=== PATIENT | female | born 1985 | race Caucasian/White ===

== ENCOUNTER 2022-01-16 06:00 | Day surgery (SDC) | payer MEDICAID ==
[~2022-01-16] VITALS: Ht 149.9 cm; Wt 135.0 kg
[2022-01-16 07:13] VITALS: BP 134/71; PULSE 70; TEMP 97.7
[2022-01-16] MEDS ORDERED: BUSPAR10 MG PO (07:17)
[2022-01-16] MEDS ORDERED: LAMICTAL 100MG100 MG PO (07:19)
[2022-01-16] MEDS ORDERED: LEXAPRO 10MG10 MG PO (07:20)
[2022-01-16] MEDS ORDERED: VITAMIND3 5000 PO (07:22)
--- NOTE | 2022-01-16 08:20 | NUR ---
Pt taken by Meena Plaza RN via cart to OR at this time. S/O remains in room.
[2022-01-16 09:00] VITALS: BP 117/71; PULSE 65; TEMP 97.9
--- NOTE | 2022-01-16 09:00 | NUR ---
Pt returned via cart from OR. Pt drowsy, arousable and oriented. VSS-documented. S/O present in room upon return. Pt lying on left side with eyes closed. Left upper back surgical site clean and dry with exofin as dressing intact. Side rails up. Call light is in pts reach.
[2022-01-16 09:15] VITALS: BP 122/55; PULSE 56
[2022-01-16 09:30] VITALS: BP 109/60; PULSE 50
[2022-01-16 09:45] VITALS: BP 127/72; PULSE 51
--- NOTE | 2022-01-16 10:30 | NUR ---
VS remain stable. Pt tolerated oral intake. Up to void without difficulty. Surgical site remains c/d/i. IV removed, pressure dressing applied. Discharge teaching completed, pt and pts s/o verbalized understanding. Pt taken via wheelchair to private vehicle for dc home with s/o driving.
== END 2022-01-16 10:30 | disposition home or self-care (01) ==
LOC: SDCO 06:00
DX: D17.1 Benign lipomatous neoplasm of skin and subcutaneous tissue of trunk (principal); Z87.891 Personal history of nicotine dependence
CPT/HCPCS: J0690; J2704; J3010; J7120